=== PATIENT | female | born 1955 | race Caucasian/White ===

== ENCOUNTER → 2016-06-01 | Outpatient (CLI) | payer OTHER ==
--- NOTE | 2016-06-03 11:12 | DEXA ---
AP SPINE L1 - L4 0.942 -2.0 -0.8 LT FEMUR TOTAL 0.700 -2.4 -1.5 RT FEMUR TOTAL 0.662 -2.7 -1.8 TOTAL BODY TOTAL OTHER DUAL FEMUR FRAX* ASSESSMENT Risk factors: History of adult fracture. 10 year probability of fracture Major osteoporotic fracture 20.4 % Hip fracture 4.4 % COMMENTS: There is low bone density of the spine. There is low bone density of the right hip. There is osteoporosis of the left hip. The decreased density of the spine does represent a significant change. The decreased density of the left hip does represent a significant change. The decreased density of the right hip does represent a significant change. The density of the spine has decreased 8.1% since the initial exam on 2004. The spine density has decreased 7.9% since the most recent exam on 05/29/2013. The density of the left hip has decreased 13.4% since the initial exam on 2004. The density of the left hip has decreased 6.3% since the most recent exam on . The density of the right hip has decreased 11.9% since the initial exam on 01/17. The density of the right hip has decreased 2.4% since the most recent exam on . FOLLOW-UP: Recommendation for the next bone density exam: 2 years. JOSE
== END ==
LOC: M WHC 14:40
PROVIDERS: ATTEND Nurse Practitioner Women's Health
DX: Z12.31 Encounter for screening mammogram for malignant neoplasm of breast (principal); Z78.0 Asymptomatic menopausal state; M81.0 Age-related osteoporosis without current pathological fracture; M85.851 Other specified disorders of bone density and structure, right thigh; M85.852 Other specified disorders of bone density and structure, left thigh; M85.88 Other specified disorders of bone density and structure, other site